=== PATIENT | male | born 1955 | race Caucasian/White ===

== ENCOUNTER 2017-09-25 07:06 | Inpatient (IN) | payer OTHER ==
[~2017-09-25] VITALS: Ht 180.3 cm; Wt 88.6 kg
--- NOTE | 2017-09-25 07:19 | ED NEURO DEFICIT/STROKE ---
History of Present Illness General Chief Complaint: General Adult Stated Complaint: BIBA FOR L SIDED NUMBNESS Source: patient, old records, EMS Exam Limitations: no limitations Vital Signs & Intake/Output Vital Signs & Intake/Output Vital Signs Date Time Temp Pulse Resp B/P B/P Pulse O2 O2 Flow FiO2 Mean Ox Delivery Rate 09/26 823 96.2 56 18 140/82 96 Room Air 09/25 0722 Room Air 09/26 707 96.2 59 20 170/96 100 Room Air Allergies Coded Allergies: No Known Allergies (09/25/17) Reconcile Medications Fluorouracil (Efudex) 5 % CREAM..G. 1 RICARDO TOP BID SKIN PROBLEMS (Reported) apply to affected area(s) Simvastatin (Simvastatin*) 40 MG TABLET 1 TAB PO QPM HIGH CHOLESTROL ( Reported) Triage Nurses Notes Reviewed? yes HPI: Patient was getting ready for work when he had a sudden onset of numbness feeling to his left leg and told him milder extent to his left arm as well. Patient denied any weakness but felt like he needed to sit down. He told his and she had him smile and she did not notice any facial droop. There is no slurring to his words. Patient states that the symptoms lasted approximately 10 minutes and then they resolved on their own. Patient states a few minutes later the symptoms came back and this time last about 30 seconds before they resolved. He denies any headache or blurry vision. Patient was recently diagnosed with potential cancerous cells to his lips so his project estimator just started her on fluorouracil cream. The ambulance was called and patient was brought in for evaluation. Patient has no current complaints. Past History Travel History Traveled to [place] past 21 day No Medical History Any Pertinent Medical History? see below for history Cardiovascular: hyperlipidemia Surgical History Surgical History: non-contributory Psychosocial History Tobacco Use: Never used ETOH Use: occasional use Illicit Drug Use: denies illicit drug use Family History Hx Contributory? No Review of Systems Review of Systems Constitutional: Reports: no symptoms. EENTM: Reports: no symptoms. Respiratory: Reports: no symptoms. Cardiovascular: Reports: no symptoms. GI: Reports: no symptoms. Genitourinary: Reports: no symptoms. Musculoskeletal: Reports: no symptoms. Skin: Reports: no symptoms. Neurological/Psychological: Reports: see HPI, numbness. Hematologic/Endocrine: Reports: no symptoms. Immunologic/Allergic: Reports: no symptoms. All Other Systems: Reviewed and Negative Physical Exam Physical Exam General Appearance: well developed/nourished, alert, awake, anxious, mild distress Head: atraumatic, normal appearance Eyes: Bilateral: PERRL, EOMI. Ears, Nose, Throat: normal ENT inspection, moist mucous membrane, hearing grossly normal Neck: normal inspection, supple, full range of motion Respiratory: normal breath sounds, chest non-tender, no respiratory distress, lungs clear Cardiovascular: regular rate/rhythm, normal peripheral pulses Gastrointestinal: normal bowel sounds, soft, non-tender, no organomegaly Back: normal inspection, normal range of motion Extremities: normal range of motion Psychiatric: awake, alert, oriented x 3 Cranial Nerves: normal hearing, normal speech, PERRL Coordination/Gait: normal finger to nose Motor/Sensory: no motor/sensory deficits Skin: intact, normal color, warm/dry Lymphatic: no anterior cervical lali Core Measures CVA/TIA Diagnosis: Yes NIH Stroke Scale NIH Stroke Scale Response Value Level of Consciousness alert 0 LOC Questions answers both correctly 0 LOC Commands obeys both correctly 0 Best Gaze normal 0 Visual Lowery no visual loss 0 Facial Paresis normal 0 Motor Arm - Left no drift 0 Motor Arm - Right no drift 0 Motor Leg - Left drift 1 Motor Leg - Right no drift 0 Limb Ataxia no ataxia 0 Sensory normal 0 Best Language no aphasia 0 Dysarthria normal articulation 0 Extinction and Inattention no neglect 0 Total 1 Date Last Known Well: 09/25/17 Time Last Known Well: 629 Symptom Start Date: 09/25/17 Symptom Start Time: 0630 Swallow Evaluation Pass Swallow eval date 09/25/17 Swallow eval time 0715 Sepsis Present: No Sepsis Focused Exam Completed? No Progress Differential Diagnosis: electrolyte imbalance, intracranial Hem., intracranial mass/tumor, stroke, subarachnoid Hem. Plan of Care: Orders Procedure Date/time Status [id number] DOPPLER 09/26 807 Active Telemetry/Nut Blanker Operator 09/25 714 Active URINALYSIS 09/25 714 Complete TROPONIN LEVEL 09/25 714 Complete COMPREHENSIVE METABOLIC PANEL 09/25 714 Complete CBC WITHOUT DIFFERENTIAL 09/25 714 Complete EKG 09/25 714 Active Laboratory Tests 09/25/17 0750: Urine Color YEL, Urine Clarity CLEAR, Urine pH 6.0, Ur Specific [place] 1.010, Urine Protein NEG, Urine Ketones NEG, Urine Nitrite NEG, Urine Bilirubin NEG, Urine Urobilinogen 0.2, Ur Leukocyte Esterase NEG, Ur Microscopic EXAM NOT REQUIRED, Urine Hemoglobin NEG, Urine Glucose NEG 09/25/17 0723: Anion Gap 13, Estimated GFR > 60, BUN/Creatinine Ratio 21.1, Glucose 120 H, Calcium 9.4, Total Bilirubin 0.5, AST 22, ALT 29, Alkaline Phosphatase 51, Troponin I < 0.01, Total Protein 7.1, Albumin 4.5, Globulin 2.6, Albumin/ Globulin Ratio 1.7, CBC w Diff NO MAN DIFF REQ, RBC 4.87, MCV 88.1, MCH 29.6, MCHC 33.6, RDW 14.0, MPV 8.1, Gran % 53.9, Lymphocytes % 34.6, Monocytes % 7.8, Eosinophils % 3.1, Basophils % 0.6, Absolute Granulocytes 3.4, Absolute Lymphocytes 2.2, Absolute Monocytes 0.5, Absolute Eosinophils 0.2, Absolute Basophils 0 Diagnostic Imaging: Viewed by Me: Radiology Read, CT Scan. Discussed w/RAD: Radiology Read, CT Scan. Initial ED EKG: NSR, no ST T wave changes Prior EKG: unchanged Rhythm Strip: normal sinus rhythm Comments: D/W DR. BROWN, HE WILL SEE PT IN CONSULT TODAY Departure Departure Disposition: STILL A PATIENT Condition: Stable Clinical Impression Primary Impression: CVA (cerebral vascular accident) Referrals: Janis ZAIDI,Jeffy Snider (PCP/Family) Departure Forms: Customer Survey General Discharge Information Admission Note Spoke With: David ZAIDI,Tereza Documentation of Exam: Documentation of any treatments & extenuating circumstances including Concerns Regarding Discharge (functional status, medication knowledge or non-compliance, living conditions, etc.) that warrant an admission rather than observation: [ TELE ADMISSION, SERIAL ENZYMES, TELE TO EVAL FOR DYSRHYTHMIAS, CAROTID ULTRASOUND, NEUROLOGY CONSULTATION]
[2017-09-25] MEDS ORDERED: EFUDEX40 GM TOP (07:24)
[2017-09-25] MEDS ORDERED: SIMVASTATIN40 M1 PO (07:25)
[2017-09-25 07:30] LABS: ABSOLUTE BASOPHIL COUNT 0 /CUMM (0.0-0.2); ABSOLUTE EOSINOPHIL COUNT 0.2 /CUMM (0.0-0.7); ABSOLUTE GRANULOCYTE CT 3.4 /CUMM (1.4-6.5); ABSOLUTE LYMPH COUNT 2.2 /CUMM (1.2-3.4); ABSOLUTE MONOCYTE COUNT 0.5 /CUMM (0.10-0.60); BASOPHIL % 0.6 % (0.0-2.0); EOSINOPHIL % 3.1 % (0-5); GRANULOCYTE % 53.9 % (42.2-75.2); HEMATOCRIT 42.9 % (42-52); MEAN CORPUSCULAR HGB 29.6 PG (27.0-31.0); MEAN CORPUSCULAR HGB CONC 33.6 G/DL (33.0-37.0); MEAN CORPUSCULAR VOLUME 88.1 FL (80.0-94.0); MEAN PLATELET VOLUME 8.1 FL (7.4-10.4); PLATELET COUNT 243 /CUMM (130-400); RED BLOOD CELL CT 4.87 /CUMM (4.70-6.10); WHITE BLOOD CELL COUNT 6.2 /CUMM (4.8-10.8)
--- NOTE | 2017-09-25 07:58 | CT SCAN REPORT ---
EXAMINATION: CT HEAD WITHOUT CONTRAST CLINICAL INFORMATION: Left-sided weakness CVA. COMPARISON: None TECHNIQUE: Contiguous axial imaging was performed from the skull base to vertex without intravenous administration of contrast. DLP: 620 mGy-cm FINDINGS: There is no evidence of acute intracranial hemorrhage or territorial infarction. No abnormal mass effect or midline shift is seen. [place] to white matter differentiation is well preserved. No extra-axial fluid collections are identified. The ventricles are normal in size. There is a focal area of decreased attenuation in the right periventricular white matter which could reflect volume average artifact from her prominent sulci versus age indeterminate lacunar infarct The osseous structures and soft tissues are normal. The mastoid air cells and visualized portions of the paranasal sinuses are well aerated. IMPRESSION: Suspect age indeterminant infarct in the right periventricular white matter. This could reflect an acute or subacute infarct. Recommend MRI if felt clinically appropriate to evaluate for infarct.
--- NOTE | 2017-09-25 08:02 | RADIOLOGY REPORT ---
EXAMINATION: XR PORTABLE CHEST CLINICAL INFORMATION: Pneumonia shortness of breath COMPARISON: None TECHNIQUE: Portable frontal view of the chest was obtained. FINDINGS: No significant abnormality is noted involving the heart, lungs, mediastinum, bony thorax or soft tissues. IMPRESSION: Unremarkable examination.
--- NOTE | 2017-09-25 09:06 | History & Physical ---
LeannRedd camacho 09/25/17 0905: General Information and HPI MD Statement: I have seen and personally examined ENRICO WELCH and documented this H&P. The patient is a 62 year old M who presented with a patient stated chief complaint of [left-sided weakness and numbness]. Source of Information: patient Exam Limitations: no limitations History of Present Illness: This is a very pleasant 62-year-old, right-handed man who presents to us with the chief complaint of left-sided weakness and numbness. Patient is an active community dweller; active > 4ME as medical history significant only for mild dyslipidemia. According to patient this morning when he wanted to take shower, suddenly he felt weak and numb on his left arm and left leg. This episode lasted for 10-15 minutes, resolved by itself, was not correlated with any speech/swallowing problem, loss of consciousness, headache, visual disturbance, chest pain, palpitation. Spell resolved by itself. Within a few minutes patient experienced another episode of transient weakness and numbness on the left side.the latest episode last less than 1 minute. Currently he does not feel weak or numb on the left side but he believes left extremities feel different from the right side". These findings were concerning for the patient and he decided to seek medical attention. Allergies/Medications Allergies: Coded Allergies: No Known Allergies (09/25/17) Compliance With Home Meds: GOOD Past History Travel History Traveled to [place] past 21 day No Medical History Neurological: NONE EENT: NONE Cardiovascular: hyperlipidemia Respiratory: NONE Gastrointestinal: NONE Hepatic: NONE Renal: NONE Musculoskeletal: NONE Psychiatric: NONE Endocrine: NONE Blood Disorders: NONE Cancer(s): NONE CURRICULUM COACH/Reproductive: NONE Influenza Vaccine: 03/21/17 Surgical History Surgical History: non-contributory Past Family/Social History Family History Relations & Conditions if any BROTHER (Fibromuscular dysplasia (FMD) and resistent secondary HTN). FATHER (stroke at age 75). . Psychosocial History ETOH Use: occasional use Illicit Drug Use: denies illicit drug use Power of Hospitalist Program Director/HCP? Functional Ability ADLs Independent: dressing, eating, toileting, bathing. Ambulation: independent IADLs Independent: shopping, housework, finances, food prep, telephone, transportation , medication admin. Review of Systems Review of Systems Constitutional: Reports: see HPI. Cardiovascular: Reports: no symptoms. GI: Reports: no symptoms. Musculoskeletal: Reports: no symptoms. Neurological/Psychological: Reports: see HPI, other. Denies: anxiety, confusion, headache, numbness, tingling, tremors, weakness. Hematologic/Endocrine: Reports: see HPI. All Other Systems: Reviewed and Negative Exam & Diagnostic Data Last 24 Hrs of Vital Signs/I&O Vital Signs Date Time Temp Pulse Resp B/P B/P Pulse O2 O2 Flow FiO2 Mean Ox Delivery Rate 09/26 823 96.2 56 18 140/82 96 Room Air 09/25 0722 Room Air 09/25 0708 96.2 59 20 170/96 100 Room Air Intake & Output 09/25 1600 09/25 0800 09/25 0000 Intake Total Output Total 450 50 Balance -450 -50 Output, Urine 450 50 Patient 200 lb Weight Weight Reported by Patient Measurement Method Physical Exam General Appearance Alert, Oriented X3, Cooperative Skin No Rashes, No Breakdown, No Significant Lesion Sepsis Skin Exam (color): Normal for Ethnicity HEENT Atraumatic, PERRLA, EOMI, Mucous Membr. moist/pink, no carotid bruit Cardiovascular Normal S1, Normal S2, No Murmurs Lungs Clear to Auscultation, Normal Air Movement Abdomen Soft, No Tenderness Neurological Normal Gait, Normal Speech, Strength at 5/5 X4 Ext, Normal Tone, Sensation Intact, Cranial Nerves 3-12 NL, Reflexes 2+, no pronator drift Extremities No Cyanosis, No Edema Vascular Normal Pulses Last 24 Hrs of Labs/Juanpablo: Laboratory Tests 09/25/17 0915: ESR W[place]gren Pending 09/25/17 0750: Urine Color YEL, Urine Clarity CLEAR, Urine pH 6.0, Ur Specific [place] 1.010, Urine Protein NEG, Urine Ketones NEG, Urine Nitrite NEG, Urine Bilirubin NEG, Urine Urobilinogen 0.2, Ur Leukocyte Esterase NEG, Ur Microscopic EXAM NOT REQUIRED, Urine Hemoglobin NEG, Urine Glucose NEG 09/25/17 0723: Anion Gap 13, Estimated GFR > 60, BUN/Creatinine Ratio 21.1, Glucose 120 H, Hemoglobin A1c Pending, Calcium 9.4, Total Bilirubin 0.5, AST 22, ALT 29, Alkaline Phosphatase 51, Troponin I < 0.01, C-Reactive Prot, Quant < 0.5, Total Protein 7.1, Albumin 4.5, Globulin 2.6, Albumin/Globulin Ratio 1.7, Triglycerides 90, Cholesterol 178, LDL Cholesterol, Calc 90, HDL Cholesterol 70 H, Cholesterol/HDL Ratio 3, CBC w Diff NO MAN DIFF REQ, RBC 4.87, MCV 88.1, MCH 29.6, MCHC 33.6, RDW 14.0, MPV 8.1, Gran % 53.9, Lymphocytes % 34.6, Monocytes % 7.8, Eosinophils % 3.1, Basophils % 0.6, Absolute Granulocytes 3.4, Absolute Lymphocytes 2.2, Absolute Monocytes 0.5, Absolute Eosinophils 0.2, Absolute Basophils 0 Diagnostic Data EKG Results Normal sinus rate and rhythm No ischemic T ST segment change Intervals within normal limits CXR Results No pathology Other Results CTA of the head without IV contrast showed #1 no bleeding or mass effect #2 focal area of decreased attenuation in the right pre-ventricular white matter questionable age indeterminate lacunar infarct; MRI is recommended Assessment/Plan Assessment: This is a 62-year-old gentleman presented with left-sided hemiparesis and imaging evidence of lacunar stroke. Pertinent data Troponin negative Glucose 120, sodium 142, potassium 4.3, lipid panel pending, HbA1c pending, C BC: Within normal limits EKG disclosed CT: Disclosed List of problems #1 lacunar stroke: Consider cardioembolic causes versus low flow causes of stroke versus microangiopathic causes of stroke Plan * Admit to telemetry for continuous Holter monitoring * Obtain echo with bubble study-done and results are pending * Obtain Doppler carotid ultrasound * Neurology consult-call Dr. Carter * Loading dose of aspirin was given in the ED; continue aspirin 81 mg by mouth daily * Remote history of muscle ache on lipitor; start Rosuvastatin 20 mg po daily * PT eval * Obtain official Swallow eval-passed bedside swallow eval * Blood pressure is controlled * elevate HOB 30 Full code lovenox 40 u sq daily pain pathway As Ranked By This Provider Problem List: 1. CVA (cerebral vascular accident) Core Measures/Misc (04/06) Acute Coronary Syndrome ACS Diagnosis: No Congestive Heart Failure Congestive Heart Failure Diagnosis No Cerebrovascular Accident CVA/TIA Diagnosis: Yes Date Last Known Well: 09/25/17 Time Last Known Well: 629 Symptom Start Date: 09/25/17 Symptom Start Time: 629 Swallow Evaluation Pass VTE (View Protocol) VTE Risk Factors Acute Medical Illness No Mechanical VTE Prophylaxis d/t N/A MechProphylax Ordered No VTE Pharm Prophylaxis d/t NA PharmProphylax ordered Sepsis (View protocol) Sepsis Present: No Resident Review Statement Resident Statement: examined this patient, discussed with international marketing intern, agreed with international marketing intern, discussed with family, reviewed EMR data (avail), discussed with nursing , discussed with case mgmt, reviewed images, amended to note Javier Camacho MD 09/25/174: Attending MD Review Statement Attending Statement Attending MD Statement: examined this patient, discuss w/resident/PA/RACK WORKER, agreed w/resident/PA/RACK WORKER, discussed with family, reviewed EMR data (avail), reviewed images, amended to note Attending Assessment/Plan: The patient is a 62 yo male with h/o HL, impaired glucose tolerance who presented on the day of admission in the ED with c/o 2 episodes of transient left sided weakness as above. He denies any h/of similar symptoms. CT of brain done on admission suggests possible subacute stroke. At the time of my exam he was feeling well. Denied headache, chest pain, dyspnea, palpitations, weakness, or gait disturbance. Carotid US done in ED showed no hemodynacally significant stenosis. Physical Exam: VS: T 96.2, P 59, R 20, BP 170/96-140/82, PO 100% RA HEENT: eyes- PERRLA, EOMI saeed- nl Neck: no bruits or JVD Chest: clear Cor: RRR nl S1, S2 w/o murm Abd: BS+, soft, NT, - HSM Ext: no edema, pulses + Neuro: CN 2-12 intact, nl motor, sensory, DTR's, toes downgoing, gait not tested by me, however observed him walking from wheelchair to stretcher and no abnormalities. Labs/Tests- as above. Impression/Plan: #TIA- ? older CVA on MRI/CT. The patient does have some risk factors. Transient left sided weakness resolved by the time I saw him. Plan: Admit to telemetry- neuro checks q4h Neurology consult appreciated. Begin ASA 81 mg daily. Change statin to high potency statin - Crestor (had myalgias from Atorvastatin). Await ECHO. Cardiology consult- will need longterm monitor (?loop) after discharge. #HL- has been on Simvastatin for many years. Plan: Will change statin to high potency statin as per CVA protocol. #Impaired Glucose- random glu 120 with Hgb A1C 6.0 Plan: Will follow-up as OP. David ZAIDI,Tereza 09/29/17 4278: General Information and HPI Allergies/Medications Home Med list Aspirin (Aspirin*) 81 MG TAB.CHEW 1 TAB PO DAILY tia . Fluorouracil (Efudex) 5 % CREAM..G. 1 RICARDO TOP BID SKIN PROBLEMS (Reported) apply to affected area(s) Rosuvastatin Calcium (Crestor) 40 MG TABLET 1 TAB PO DAILY tia . Attending MD Review Statement Attending Statement Attending Assessment/Plan: This patient was seen and supervised by Dr. Georgina Camacho. I did not see this patient. This H&p was assigned to me in error. Tereza Hernandez MD.
--- NOTE | 2017-09-25 10:38 | ULTRASOUND REPORT ---
EXAMINATION: DUPLEX BILATERAL CAROTID ULTRASOUND CLINICAL INFORMATION: 8-year-old male with questionable stroke. COMPARISON: No similar prior examinations available for comparison. TECHNIQUE: Real-time ultrasound and Doppler techniques (integrating B-mode 2D vascular images, Doppler spectral analysis and color flow Doppler imaging) were utilized to interrogate the extracranial carotid and vertebral arteries bilaterally. The degree of stenosis determined by criteria similar to NASCET. FINDINGS: Right side: 1. Mild amount of plaque is seen in the ECA/ICA region. 2. The common carotid artery velocity is 90 cm/s. 3. The internal carotid artery velocities are 54 cm/s systolic and 23 cm/s diastolic. 4. The external carotid artery velocity is 106 cm/s. Left side: 1. Small amount of plaque is seen in the ECA/ICA region. 2. The common carotid artery velocity is 82 cm/s. 3. The internal carotid artery velocities are 53 cm/s systolic and 20 cm/s diastolic. 4. The external carotid artery velocity is 90 cm/s. ADDITIONAL FINDINGS: 1. The vertebral arteries show antegrade flow. IMPRESSION: 1. RIGHT: Minimal, nonhemodynamically significant stenosis of the proximal right internal carotid artery corresponding to a 0-49% stenosis by velocity criteria. 2. LEFT: Minimal, nonhemodynamically significant stenosis of the proximal left internal carotid artery corresponding to a 0-49% stenosis by velocity criteria. 3. No evidence for hemodynamically significant stenosis in the external carotid arteries.
--- NOTE | 2017-09-25 11:56 | MRI REPORT ---
MR BRAIN WITHOUT IV CONTRAST CLINICAL INFORMATION: Left-sided hemiparesis. COMPARISON: Head CT performed earlier the same day. TECHNIQUE: MRI of the brain without contrast was obtained using routine sequences. FINDINGS: There are a few small foci of apparent restricted diffusion within the right occipital lobe on image 53 of series 3 that may be artifactual or that may reflect small acute infarcts in this location. Accounting for artifact, no additional acute infarcts are identified. There is a chronic infarct exhibiting facilitated diffusion within the right frontal lobe corresponding with the site of hyperdensity on the earlier head CT. There is a focus of chronic encephalomalacia and gliosis within the lateral right temporal lobe. Chronic lacunar infarct within the left peritrigonal white matter. Mild background chronic microangiopathy. There is no hydrocephalus, extra-axial surface collection, or herniation. The major flow voids at the skull base are preserved. There is no intracranial hemorrhage on the gradient recalled echo acquisition. The midline structures are normal. The cerebellar tonsils are normally positioned. The cerebellum and brainstem are normal. The craniocervical junction is normal. Osseous marrow signal intensity is homogenous. The visualized soft tissues are unremarkable. IMPRESSION: - There are a few small foci of apparent restricted diffusion within the right occipital lobe on image 53 of series 3 that may be artifactual or that may reflect small acute infarcts in this location. Accounting for artifact, no additional acute infarcts are identified. - There is a chronic infarct exhibiting facilitated diffusion within the right frontal lobe corresponding with the site of hyperdensity on the earlier head CT. There is mild chronic microangiopathy, there is a chronic lacunar infarct within the left peritrigonal white matter, there is a small focus of encephalomalacia and gliosis within the lateral aspect of the right temporal lobe.
[2017-09-25 14:28] VITALS: BP 136/80
--- NOTE | 2017-09-25 16:44 | Cons- Neurology ---
General Information and HPI Consulting Request Date of Consult: 09/25/17 Requested By: Javier Camacho MD Reason for Consult: Transient left-sided weakness Source of Information: patient, family, old records Exam Limitations: no limitations History of Present Illness: 62-year-old man went to take a shower around 6:30 this morning and developed sudden weakness of the left arm and leg. There was some numbness in the arm as well area and he was unable to hold a towel. Symptoms resolved in an estimated 5-10 minutes but recurred very briefly a few minutes later. No associated loss of consciousness, headache, visual disturbance, chest pain, palpitation. No prior clinical events suggestive of stroke. No known cardiac disease Family history of stroke in his father around the age of 72 Nonsmoker, glucose sometimes "borderline" history of hyperlipidemia on a statin Has sleep apnea, uses CPAP intermittently Allergies/Medications Allergies: Coded Allergies: No Known Allergies (09/25/17) Home Med List: Fluorouracil (Efudex) 5 % CREAM..G. 1 RICARDO TOP BID SKIN PROBLEMS (Reported) apply to affected area(s) Simvastatin (Simvastatin*) 40 MG TABLET 1 TAB PO QPM HIGH CHOLESTROL ( Reported) Current Medications: Current Medications Sig/Bret Start time Last Medication Dose Route Stop Time Status Admin Aspirin 81 MG DAILY 09/25 1000 AC PO Aspirin 0 .STK-MED ONE 09/25 0824 DC PO Aspirin 325 MG ONCE ONE 09/25 0815 DC / PO 09/25 0816 0823 Atorvastatin Calcium 40 MG 1700 09/25 1700 CAN PO Enoxaparin Sodium 0 .STK-MED ONE 09/25 1358 DC SC Enoxaparin Sodium 40 MG DAILY 09/25 1000 AC 09/25 SC 1351 Rosuvastatin Calcium 20 MG 1700 09/25 1700 AC PO Review of Systems Review of Systems: ROS: The patient had no constitutional complaints. Vision clear, no diplopia ENT: No vertigo or tinnitus or hearing loss Cardiac: |Chest pain and palpitations denied Respiratory: No dyspnea or wheezing GI: No abdominal pain nausea or diarrhea. 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 FATHER (stroke at age 75). . Psychosocial History Where Do You Live? Home Smoking Status: Never Smoked ETOH Use: occasional use Illicit Drug Use: denies illicit drug use Power of Employee Benefits Director/HCP? Functional Ability ADLs Independent: dressing, eating, toileting, bathing. Ambulation: independent IADLs Independent: shopping, housework, finances, food prep, telephone, transportation , medication admin. Exam & Diagnostic Data Vital Signs and I&O Vital Signs Date Time Temp Pulse Resp B/P B/P Pulse O2 O2 Flow FiO2 Mean Ox Delivery Rate 09/25 1428 98.2 54 20 136/80 96 Room Air 09/25 1314 96.5 56 18 122/76 96 Room Air 09/25 0824 96.2 56 18 140/82 96 Room Air 09/25 0722 Room Air 09/25 0708 96.2 59 20 170/96 100 Room Air Intake & Output 09/25 1600 08 0800 09/25 0000 Intake Total Output Total 850 50 Balance -850 -50 Output, Urine 850 50 Patient 199 lb 200 lb Weight Weight Bed scale Reported by Patient Measurement Method Physical Exam: On exam the patient appeared generally well and in no distress. No carotid bruits and no cardiac murmur. No peripheral edema Mental status: Alert, attentive, fully oriented, no language errors, recall and general fund of knowledge seem intact Visual cui full , Eye movements full without nystagmus, pupils midsize equal round and reactive to light. Facial movement normal bilaterally Facial sensation normal bilaterally Hearing intact bilaterally Uvula elevates midline Tongue protrusion is midline Shoulder shrug symmetric Motor power and tone normal in all 4 extremities Sensation intact to primary modes Tendon reflexes normal and symmetric without pathologic signs Coordination no ataxia Gait [testing deferred Last 48 Hours of Lab Results: Laboratory Tests 09/25 09/25 0915 0750 Hematology ESR [place] (0 - 10 MM) 5 Urines Urine Color (YEL,AMB,STR) YEL Urine Clarity (CLEAR) CLEAR Urine pH (5.0 - 8.0) 6.0 Ur Specific [place] (1.001 - 1.035) 1.010 Urine Protein (NEG,<30 MG/DL) NEG Urine Ketones (NEG) NEG Urine Nitrite (NEG) NEG Urine Bilirubin (NEG) NEG Urine Urobilinogen (0.1 - 1.0 EU/dl) 0.2 Ur Leukocyte Esterase (NEG) NEG Ur Microscopic EXAM NOT REQUIRED Urine Hemoglobin (NEG) NEG Urine Glucose (N MG/DL) NEG 09/25 0723 Chemistry Sodium (137 - 145 mmol/L) 142 Potassium (3.5 - 5.1 mmol/L) 4.3 Chloride (98 - 107 mmol/L) 105 Carbon Dioxide (22 - 30 mmol/L) 24 Anion Gap (5 - 16) 13 BUN (9 - 20 mg/dL) 19 Creatinine (0.7 - 1.2 mg/dL) 0.9 Estimated GFR (>60 ml/min) > 60 BUN/Creatinine Ratio (7 - 25 %) 21.1 Glucose (65 - 99 mg/dL) 120 H Hemoglobin A1c (4.2 - 5.8 %) 6.0 H Calcium (8.4 - 10.2 mg/dL) 9.4 Total Bilirubin (0.2 - 1.3 mg/dL) 0.5 AST (17 - 59 U/L) 22 ALT (21 - 72 U/L) 29 Alkaline Phosphatase (< 127 U/L) 51 Troponin I (<0.11 ng/ml) < 0.01 C-Reactive Prot, Quant (<1.0 mg/dL) < 0.5 Total Protein (6.3 - 8.2 g/dL) 7.1 Albumin (3.5 - 5.0 g/dL) 4.5 Globulin (1.9 - 4.2 gm/dL) 2.6 Albumin/Globulin Ratio (1.1 - 2.2 %) 1.7 Triglycerides (<150 mg/dL) 90 Cholesterol (< 200 MG/DL) 178 LDL Cholesterol, Calc (65 - 129 mg/dL) 90 HDL Cholesterol (40 - 60 mg/dL) 70 H Cholesterol/HDL Ratio (0.00 - 4.88 %) 3 Hematology CBC w Diff NO MAN DIFF REQ WBC (4.8 - 10.8 /CUMM) 6.2 RBC (4.70 - 6.10 /CUMM) 4.87 Hgb (14.0 - 18.0 G/DL) 14.4 Hct (42 - 52 %) 42.9 MCV (80.0 - 94.0 FL) 88.1 MCH (27.0 - 31.0 PG) 29.6 MCHC (33.0 - 37.0 G/DL) 33.6 RDW (11.5 - 14.5 %) 14.0 Plt Count (130 - 400 /CUMM) 243 MPV (7.4 - 10.4 FL) 8.1 Gran % (42.2 - 75.2 %) 53.9 Lymphocytes % (20.5 - 51.1 %) 34.6 Monocytes % (1.7 - 9.3 %) 7.8 Eosinophils % (0 - 5 %) 3.1 Basophils % (0.0 - 2.0 %) 0.6 Absolute Granulocytes (1.4 - 6.5 /CUMM) 3.4 Absolute Lymphocytes (1.2 - 3.4 /CUMM) 2.2 Absolute Monocytes (0.10 - 0.60 /CUMM) 0.5 Absolute Eosinophils (0.0 - 0.7 /CUMM) 0.2 Absolute Basophils (0.0 - 0.2 /CUMM) 0 Imaging/Other Studies: CT scan: Suspect age indeterminant infarct in the right periventricular white matter. This could reflect an acute or subacute infarct. Recommend MRI if felt clinically appropriate to evaluate for infarct. MRI: - There are a few small foci of apparent restricted diffusion within the right occipital lobe on image 53 of series 3 that may be artifactual or that may reflect small acute infarcts in this location. Accounting for artifact, no additional acute infarcts are identified. - There is a chronic infarct exhibiting facilitated diffusion within the right frontal lobe corresponding with the site of hyperdensity on the earlier head CT. There is mild chronic microangiopathy, there is a chronic lacunar infarct within the left peritrigonal white matter, there is a small focus of encephalomalacia and gliosis within the lateral aspect of the right temporal lobe. Carotid Dopplers: 1. RIGHT: Minimal, nonhemodynamically significant stenosis of the proximal right internal carotid artery corresponding to a 0-49% stenosis by velocity criteria. 2. LEFT: Minimal, nonhemodynamically significant stenosis of the proximal left internal carotid artery corresponding to a 0-49% stenosis by velocity criteria. 3. No evidence for hemodynamically significant stenosis in the external carotid arteries. Assessment/Plan Assessment: Transient ischemic attack, right hemispheric with left arm and leg weakness and numbness. Patient already on a statin, aspirin was started on presentation. Prior "silent" stroke also in the right hemisphere, the abnormality on CT suggested an acute stroke but on MRI scanning is old. Recommendations: Aspirin 81 MG EC daily High intensity statin TIAs and stroke were discussed at some length with the patient and his family Additional stroke information should be provided Await echocardiogram report If stable tomorrow and echo unrevealing the patient could be discharged for outpatient follow-up Advised against intense exercise for the next few weeks but he should continue a conditioning program of gradual onset Consult Acknowledgment - Thank you for your consult request.
[2017-09-25 22:08] VITALS: BP 130/80
--- NOTE | 2017-09-25 22:36 | Admission Certification ---
Admission Certification Certification Statement - As attending physician, I certify that at the time of - admission, based on clinical presentation, severity of - symptoms, need for further diagnostic testing and - therapeutic interventions, and risk of adverse outcomes - without in-hospital treatment, in my clinical assessment, - this patient requires an acute hospital stay for a minimum - of two nights or longer. I have also considered psychsocial - factors such as support system, advanced age, financial - issues, cognitive issues, and failed out-patient treatments, - past re-admission history, safety of patient, and lack of - compliance as applicable. Specific rationale supporting this admission is: The patient presents with 2 episodes of left upper and lower extremity weakness. Has subacute CVA on CT. Will admit to telemetry. Check neuro signs q4h, begin ASA/Crestor (high potency statin). Neurology consult and Cardiology consult for chcf monitoring.
[2017-09-26 06:59] VITALS: BP 126/82
--- NOTE | 2017-09-26 07:14 | ECHOCARDIOGRAM REPORT ---
ENRICO WELCH Age: 62 : 1955 Gender: M Exam Date: 09/25/2017 09:31 Exam Location: ER Ht (in): 71 Wt (lb): 200 BSA: 2.15 BP: 140 / 82 Ordering Physician: JANEL SKAGGS MD Referring Physician: JANEL SKAGGS MD Technologist: Morro Villasenor RDCS Room Number: 5 Indications: STROKE Rhythm: Sinus Technical Quality: fair FINDINGS Left Ventricle Normal left ventricular size, wall thickness and systolic function with mild posterior wall hypokinesis. Normal left ventricular diastolic filling pattern for age. The ejection fraction is visually estimated at 50-55 %. Right Ventricle The right ventricle is normal in size with decreased contractility at the base. Right Atrium The right atrium is normal in size. Left Atrium The left atrium is normal in size. The interatrial septum is intact. Mitral Valve The mitral valve is normal in structure and function. There is no mitral regurgitation. Aortic Valve Structurally normal aortic valve without significant sclerosis or stenosis. There is no aortic regurgitation. Tricuspid Valve The tricuspid valve is normal in structure and function. There is trace tricuspid regurgitation. Pulmonary artery systolic pressure is normal. Pulmonic Valve Structurally normal pulmonic valve. There is no pulmonic regurgitation. Pericardium Normal pericardium with trace effusion. No pleural effusion. Great Vessels Normal aortic root dimension. The aortic arch and great vessels are well seen and are normal. CONCLUSIONS 1. Normal EF of 50-55% with moderate hypokinesis of the posterior wall. 2. Decreased contractility of the right ventricular base. 3. Trace tricuspid regurgitation. 4. Trace pericardial effusion. Carlos John M.D. (Electronically Signed) Final Date: 26 September 2017 07:13 MEASUREMENTS (Male / Female) Normal Values 2D ECHO LV Diastolic Diameter PLAX 5.1 cm 4.2 - 5.9 / 3.9 - 5.3 cm LV Systolic Diameter PLAX 3.6 cm 2.1 - 4.0 cm LV Fractional Shortening PLAX 29.4 % 25 - 46 % LV Ejection Fraction 2D Teich 56.0 % IVS Diastolic Thickness 1.1 cm LVPW Diastolic Thickness 1.1 cm LV Relative Wall Thickness 0.4 LVOT Diameter 1.9 cm Aortic Root Diameter 2.9 cm LA Systolic Diameter LX 2.9 cm 3.0 - 4.0 / 2.7 - 3.8 cm Ascending Aorta Diameter 3.2 cm DOPPLER AV Peak Velocity 96.5 cm/s AV Peak Gradient 3.7 mmHg AV Mean Velocity 66.9 cm/s AV Mean Gradient 2.0 mmHg AV Velocity Time Integral 23.5 cm LVOT Peak Velocity 61.7 cm/s LVOT Peak Gradient 1.5 mmHg LVOT Mean Velocity 37.4 cm/s LVOT Mean Gradient 1.0 mmHg LVOT Velocity Time Integral 12.5 cm LVOT Stroke Volume 35.4 cm AV Area Cont Eq vti 1.5 cm AV Area Cont Eq pk 1.8 cm MV Peak Velocity 70.3 cm/s MV Peak Gradient 2.0 mmHg MV Mean Velocity 34.4 cm/s MV Mean Gradient 1.0 mmHg Mitral E Point Velocity 51.8 cm/s Mitral A Point Velocity 56.8 cm/s Mitral E to A Ratio 0.9 MV PHT Velocity 57.0 cm/s MV Deceleration [place] 213.0 cm/s MV Pressure Half Time 80.3 ms MV Area PHT 2.7 cm MV Deceleration Time 331.0 ms PV Peak Velocity 73.1 cm/s PV Peak Gradient 2.1 mmHg PV Mean Velocity 51.9 cm/s PV Mean Gradient 1.0 mmHg PV Velocity Time Integral 18.2 cm
--- NOTE | 2017-09-26 07:59 | PN- Housestaff ---
See Addendum Subjective Follow-up For: Stroke/TIA Subjective: no complaints no neuro deficits or numbness currently Review of Systems Constitutional: Reports: see HPI. Objective Last 24 Hrs of Vital Signs/I&O Vital Signs Date Time Temp Pulse Resp B/P B/P Pulse O2 O2 Flow FiO2 Mean Ox Delivery Rate 09/26 0559 98.0 57 12 126/82 95 Room Air 09/25 2208 98.5 63 20 130/80 97 Room Air 09/25 1428 98.2 54 20 136/80 96 Room Air 09/25 1314 96.5 56 18 122/76 96 Room Air Intake & Output 09/26 1600 09/26 0800 09/26 0000 Intake Total 200 150 Output Total Balance 200 150 Intake, Oral 200 150 Patient 88.649 kg Weight Weight Bed scale Measurement Method Physical Exam General Appearance: Alert, Oriented X3, Cooperative, No Acute Distress Cardiovascular: Regular Rate, Normal S1, Normal S2, No Murmurs Lungs: Clear to Auscultation, Normal Air Movement Abdomen: Normal Bowel Sounds, Soft, No Tenderness, No Masses Neurological: Normal Gait, Normal Speech, Strength at 5/5 X4 Ext, Normal Tone, Sensation Intact, Cranial Nerves 3-12 NL Extremities: No Clubbing, No Cyanosis, No Edema, Normal Pulses, No Tenderness/ Swelling Current Medications: Current Medications Sig/Bret Start time Last Medication Dose Route Stop Time Status Admin Aspirin 81 MG DAILY 09/25 1000 AC 09/26 PO 0857 Atorvastatin Calcium 40 MG 1700 09/25 1700 CAN PO Enoxaparin Sodium 0 .STK-MED ONE 09/25 1358 CAN SC Enoxaparin Sodium 40 MG DAILY 09/25 1000 DC 09/25 SC 1351 Rosuvastatin Calcium 40 MG 1700 09/26 1700 AC PO Rosuvastatin Calcium 20 MG 1700 09/25 1700 DC 09/25 PO 1643 Assessment/Plan Assessment: 62 year old male presented with acute onset left sided numbness and clumsiness suggestive of stoke and imaging evidence of both old and new lacunar stroke. Lacunar stroke: Consider cardioembolic causes versus atherosclerotic ischemia Continue aspirin and statin therapy Neurology consulted, appreciate recommendations No arrythmia on telemetry TTE no evidence of embolic source Carotid dopplers negative for significant stenosis or plaques NCHCT-infarct in the right periventricular white matter. acute or subacute infarct MRI Head - There are a few small foci of apparent restricted diffusion within the right occipital lobe on image 53 of series 3 that may be artifactual or that may reflect small acute infarcts in this location. Accounting for artifact, no additional acute infarcts are identified. - There is a chronic infarct exhibiting facilitated diffusion within the right frontal lobe corresponding with the site of hyperdensity on the earlier head CT. There is mild chronic microangiopathy, there is a chronic lacunar infarct within the left peritrigonal white matter, there is a small focus of encephalomalacia and gliosis within the lateral aspect of the right temporal lobe. Outpatient cardiology evaluation for undetected atrial fibrillation to further evaluate embolic risk with undetected arrhythmia HLD: Continue statin PreDM: hemoglobin a1c 6.0 lifestyle modifications Heart healthy diet DVT ppx-lovenox 40mg subcutaneous daily Full code Stable for discharge on aspirin and high intensity statin with outpatient cardiology followup Problem List: 1. CVA (cerebral vascular accident) Pain Ratin Pain Location: n/a Pain Goal: Pain 4 or less Pain Plan: prn Tomorrow's Labs & Rationales: none, discharge
[2017-09-26] MEDS ORDERED: CRESTOR40 M2 PO ×2 (10:09→10:27)
[2017-09-26] MEDS ORDERED: ASPIRIN81 M4 PO ×2 (10:09→10:27)
--- NOTE | 2017-09-26 10:13 | Patient Discharge Instructions ---
Discharge Instructions General Discharge Information You were seen/treated for: stroke/TIA Special Instructions: Continue aspirin and statin therapy. Follow up with your primary care physician. Follow up with Dr. John of cardiology to make sure you don't have an irregular heart rhythm. Acute Coronary Syndrome Inclusion Criteria At DC or during hospital stay patient has or had the following: ACS DIAGNOSIS No Discharge Core Measures Meds if any: Prescribed or Continued at Discharge Meds if any: NOT Prescribed or Continued at Discharge Congestive Heart Failure Inclusion Criteria At DC or during hospital stay patient has or had the following: CHF DIAGNOSIS No Discharge Core Measures Meds if any: Prescribed or Continued at Discharge Meds if any: NOT Prescribed or Continued at Discharge Cerebrovascular accident Inclusion Criteria At DC or during hospital stay patient has or had the following: CVA/TIA Diagnosis Yes Discharge Core Measures Meds if any: Prescribed or Continued at Discharge Antithrombotic Yes Statin (required if LDL =>70) Yes Anticoagulant No Meds if any: NOT Prescribed or Continued at Discharge No Anticoagulant d/t Prescribed other Anticoag (on aspirin) Venous thromboembolism Inclusion Criteria VTE Diagnosis No VTE Type NONE VTE Confirmed by (Test) NONE Discharge Core Measures - Per Current guidelines, there needs to be overlap - treatment for the first 5 days of Warfarin therapy. - If discharged on Warfarin prior to 5 days of - overlap therapy, the patient will need to be - assessed for post discharge needs including - *Post discharge parental anticoagulation - *Warfarin and/or parental anticoagulation education - *Follow up date to check INR post discharge At least 5 days overlap therapy as Inpatient No Meds if any: Prescribed or Continued at Discharge Note: Overlap Therapy is Warfarin and Anticoagulant Meds if any: NOT Prescribed or Continued at Discharge
--- NOTE | 2017-09-26 10:24 | Discharge Summary ---
Visit Information Visit Dates Admission Date: 09/25/17 Discharge Date: 09/26/17 Hospital Course Course Attending Physician: Edvin ZAIDI,Fritz Collado Primary Care Physician: Janis ZAIDI,Jeffy Snider Hospital Course: 62 year old right-handed male with PMH significant only for HLD on statin therapy presented with complaints of acute onset left-sided numbness and minimally noticeable weakness. The morning of presentation, going to the shower , he suddenly he felt weak and numbness on his left leg primarilly and left upper extremity. The episode lasted for 10-15 minutes total, and resolved spontaneously. In the hospital, he underwent neurology evaluation and testing including carotid dopplers, echocardiogram, CT and MRI of the head. His CT was negative for any acute hemorrhage but did show an age indeterminate right periventricular infarction concerning for acute infarction. MRI was performed and showed evidence of both old and acute infarcts. It demonstrated mild chronic microangiopathy, a chronic right frontal infarct, left peritrigonal white matter chronic lacunar infarct, a small focus of encephalomalacia and gliosis within the lateral aspect of the right temporal lobe, and small acute lacunar right occipital infarcts. The patient was started on aspirin and high intensity aspirin therapy. He had no arrhythmias on telemetry monitoring and did not have an acute myocardial infarction. The echocardiogram and carotid dopplers were negative for valvular disease, embolic source or hemodynamically signficant stenosis. He was instructed to follow up with cardiology on discharge to further evaluate arrhythmia, with an event monitor, for possible atrial fibrillation and cardioembolic source of his CVA. He should also follow up with Dr. Burgos of neurology and his primary care physician within two weeks of discharge. Allergies: Coded Allergies: No Known Allergies (09/25/17) Disposition Summary Disposition Principal Diagnosis: Acute CVA with no residual neurological deficit Additional Diagnosis: Hyperlipidemia Prediabetes Discharge Disposition: home or self care Discharge Instructions General Discharge Information Code Status: Full Code Patient's Diet: Heart healthy Patient's Activity: No limitations, as tolerated Follow-Up Instructions/Appts: Please follow up with cardiology, Dr. John, and your primary care physician within two weeks of discharge. Medications at Discharge Discharge Medications: Stop taking the following medications: Simvastatin (Simvastatin*) 40 MG TABLET ORAL Every night Qty = 90 Continue taking these medications: Fluorouracil (Efudex) 5 % CREAM..G. 1 Application On the skin TWICE DAILY Qty = 40 Instructions: apply to affected area(s) Comments: NOT GIVEN IN HOSPITAL Start taking the following new medications: Rosuvastatin Calcium (Crestor) 40 MG TABLET 1 Tablet ORAL DAILY Qty = 30 No Refills Instructions: . Comments: Last Taken: 09/25/17 TIME: 1643 20 MG GIVEN Aspirin (Aspirin*) 81 MG TAB.CHEW 1 Tablet ORAL DAILY Qty = 30 No Refills Instructions: . Comments: Last Taken: 09/26/17 Time: 0857 Copies To: Janis ZAIDI,Jeffy Snider; Aubrey ZAIDI,Cheng Cardenas; Alvaro ZAIDI PHD,Carlos Collado Attending MD Review Statement Documenting Attending: Edvin ZAIDI,Fritz Collado
[2017-09-29] MEDS ORDERED: PLAVIX75 M1 PO (16:50)
== END 2017-09-26 13:45 | DRG 65 ==
LOC: ERH 07:06 → ERHI 08:43 → 1NO 08:43 → ENRESERV 13:03 → ENTRNSPT 13:33 → EDTRNSPTSTS 13:37 → EDTRNSPT 13:37 → 1NO 14:00 → CMPTRNSPT 14:18 → 1NO 14:21 → ENPENDDIS 09-26 10:17 → 1NO 09-26 13:45
PROVIDERS: Emergency Medicine
DX: I63.9 Cerebral infarction, unspecified (principal); G81.94 Hemiplegia, unspecified affecting left nondominant side; E78.5 Hyperlipidemia, unspecified; R73.03 Prediabetes
CPT/HCPCS: 1NSP; 70551; 71045; 81003; 93005; 93010; 93306; J1650; J3490